=== PATIENT | male | born 1940 | race Caucasian/White ===

== ENCOUNTER → 2023-12-14 | Outpatient (CLI) | payer MEDICARE ==
--- NOTE | 2023-12-14 12:45 | HMCIMG ---
US RENAL SONOGRAM HISTORY: Renal cyst COMPARISON: None TECHNIQUE: Renal and bladder ultrasound study was performed. FINDINGS: The right kidney measures 9.6 x 4.5 x 6 cm. The left kidney measures 10.7 x 4.7 x 4 cm. There is mild right hydronephrosis. There is severe left hydronephrosis. There is left renal cyst measuring 2 cm. Both kidneys are seen. Bladder is moderately distended. Bladder volume is 114.7 cc. IMPRESSION: 1. Mild right hydronephrosis and severe left hydronephrosis. Left renal cyst measuring 2 cm.
== END | disposition home or self-care (01) ==
LOC: RAH 11:21
PROVIDERS: ATTEND Family Medicine
DX: N13.39 Other hydronephrosis (principal); N28.1 Cyst of kidney, acquired; N32.89 Other specified disorders of bladder
CPT/HCPCS: 76770

== ENCOUNTER → 2024-01-09 | Outpatient (CLI) | payer MEDICARE ==
--- NOTE | 2024-01-10 07:10 | HMCSR ---
APPROVED REPORT Bilateral Lower Extremity Venous Study for DVT., Venous Competence.Study performed with patient in up right position or in reverse Trendelenburg. Vein Imaging CFV (R): Normal flow, augmentation and compression. No evidence of DV, 406 ms of DVR. SFJ (R): Normal flow, augmentation and compression. No evidence of DVT. FEM (R): Normal flow, augmentation and compression. No evidence of DVT. 461 ms of DVR. POP (R): Normal flow, augmentation and compression. No evidence of DVT, 361 sms of DVR. DFV (R): Normal flow, augmentation and compression. No evidence of DVT, 439 ms of DVR. PTV (R): Normal flow, augmentation and compression. No evidence of DVT. Peroneals (R): Normal flow, augmentation and compression. No evidence of DVT. GAS (R): Normal flow, augmentation and compression. No evidence of DVT. CFV (L): Normal flow, augmen tation and compression. No evidence of DVT, 628 ms of DVR. SFJ (L): Normal flow, augmentation and compression. No evidence of DVT. FEM (L): Normal flow, augmentation and compression. No evidence of DVT, 361 ms of DVR. POP (L): Normal flow, augmentation and compression. No evidence of DVT. DFV (L): Normal flow, augmentation and compression. No evidence of DVT. PTV (L): Normal flow, augmentation and compression. No evidence of DVT. Peroneals (L): Normal flow, augmentation and compression. No evidence of DVT. GAS (L): Normal flow, augmentation and compression. No evidence of DVT. Technologist Impression The deep veins of the bilateral lower extremities appear patent and compressible without evidence of thrombus. Deep venous reflux noted. There is evidence of significant superficial venous insufficiency in the bilateral greater saphenous veins. RGSV (Very superficial) Junction 5.1 mm 1283 ms Mid thigh 5.1 mm 583 ms Knee 4.8 mm 400 ms Mid- calf 3.8 mm 472 ms RSSV Prox 2.6 mm 189 ms Mid 2.8 mm 344 ms LGSV Junction 3.6 mm 261 ms Mid thigh 3.8 mm 0 ms Knee 3.1 mm 267 ms Mid-calf 4.2 mm 589 ms LSSV Prox 1.4 mm 0 ms Mid 1.1 mm 0 ms Conclusion Deep venous reflux noted. There is evidence of significant superficial venous insufficiency in the bilateral greater saphenous veins. Conclusion Deep venous reflux noted. There is evidence of significant superficial venous insufficiency in the bilateral greater saphenous veins.
== END | disposition home or self-care (01) ==
LOC: SHCH 13:45
PROVIDERS: ATTEND Internal Medicine Cardiovascular Disease
DX: I87.2 Venous insufficiency (chronic) (peripheral) (principal); I87.1 Compression of vein
CPT/HCPCS: 93970

== ENCOUNTER → 2024-09-23 | Outpatient (CLI) | payer MEDICARE ==
--- NOTE | 2024-09-24 06:59 | HMCIMG ---
EXAMINATION: SOFT TISSUE ULTRASOUND OF THE LEFT GROIN. CLINICAL HISTORY: Palpable swelling. COMPARISON: None. TECHNIQUE: Transverse and longitudinal images were obtained in the left groin. FINDINGS: There is left inguinal hernia, the sac measures 3.5 x 2.4 x 3.1 cm and contains bowel. IMPRESSION: Left inguinal hernia which contains bowel. /[place]
== END | disposition home or self-care (01) ==
LOC: RAH 14:00
PROVIDERS: ATTEND Family Medicine
DX: K40.90 Unilateral inguinal hernia, without obstruction or gangrene, not specified as recurrent (principal)
CPT/HCPCS: 76882

== ENCOUNTER → 2024-09-24 | Outpatient (CLI) | payer MEDICARE ==
--- NOTE | 2024-09-25 13:23 | HMCIMG ---
EXAMINATION: SPECTRAL DOPPLER ULTRASOUND EXAMINATION OF THE LEFT LOWER EXTREMITY VEINS. CLINICAL HISTORY: Edema. COMPARISON: None provided. TECHNIQUE: Real-time ultrasound scan of the veins of the left lower extremity with color Doppler flow, spectral waveform analysis and compression. FINDINGS: DEEP VEINS: The common femoral, superficial femoral, and popliteal veins are echolucent and compressible. There is normal color Doppler flow throughout. The visualized calf veins appear patent. SUPERFICIAL VEINS: The greater saphenous vein is patent and compressible. SOFT TISSUES: No popliteal fossa cyst or other abnormalities. IMPRESSION: No deep venous thrombosis evident in the left lower extremity. No superficial thrombophlebitis in the left lower extremity. /[place]
== END | disposition home or self-care (01) ==
LOC: RAH 13:43
PROVIDERS: ATTEND Family Medicine
DX: R60.0 Localized edema (principal)
CPT/HCPCS: 93971